=== PATIENT | male | born 1950 | race Caucasian/White ===

== ENCOUNTER → 2016-06-14 | Outpatient (CLI) | payer OTHER | END | disposition home or self-care (01) | LOC: CFH 09:01 | PROVIDERS: ATTEND Genetic Counselor, MS | DX: Z87.891 Personal history of nicotine dependence (principal) | CPT/HCPCS: 93978 ==

== ENCOUNTER 2019-03-28 05:21 | Day surgery (SDC) | payer MEDICARE ==
[2019-03-26 13:39] LABS: BASOPHILS # (AUTO) 0.05 x10^3/uL (0-0.1); BASOPHILS % (AUTO) 1 % (0-1); EOSINOPHILS # (AUTO) 0.04 x10^3/uL (0-0.4); EOSINOPHILS % (AUTO) 1 % (1-7); LYMPHOCYTES # (AUTO) 0.86 x10^3/uL (1-3.4); LYMPHOCYTES % (AUTO) 15 % (22-44); MD NO; MEAN CORPUSCULAR HEMOGLOBIN 30.7 pg (27.5-34.5); MEAN CORPUSCULAR HGB CONC 33.2 g/dL (33.2-36.2); MEAN CORPUSCULAR VOLUME 92.6 fL (81-97); MEAN PLATELET VOLUME 9.1 fL (7.4-10.4); MONOCYTES # (AUTO) 0.52 x10^3/uL (0.2-0.8); MONOCYTES % (AUTO) 9 % (2-9); NEUTROPHILS # (AUTO) 4.24 x10^3/uL (1.8-6.8); NEUTROPHILS % (AUTO) 74 % (42-75); PLATELET COUNT 243 x10^3/uL (130-400); RED BLOOD COUNT 4.22 x10^6/uL (4.38-5.82); RED CELL DISTRIBUTION WIDTH 13.8 % (9.4-14.8)
[2019-03-26 13:52] LABS: ALBUMIN 4.2 g/dL (3.4-5.0); ANION GAP 5 mmol/L (5-15); CALCIUM 9.6 mg/dL (8.5-10.1); CHLORIDE 108 mmol/L (98-107)
[2019-03-26 13:55] LABS: ALANINE AMINOTRANSFERASE 29 U/L (12-78); ALKALINE PHOSPHATASE 105 U/L (45-117); BILIRUBIN,TOTAL 0.7 mg/dL (0.2-1.0); CREATININE 1.38 mg/dL (0.7-1.3)
[2019-03-26 14:10] LABS: INTERNATIONAL NORMALIZED RATIO 0.96 (0.93-1.1); PROTHROMBIN TIME 10.2 Seconds (9.6-11.5)
[~2019-03-28] VITALS: Ht 157.5 cm; Wt 63.3 kg
[~2019-03-28 05:21] MED LIST: AMLO-150 PO; ASPI-496 PO; ATOR80TA PO; DOXA4TAB3 PO; GLYB2.5T2 PO; LOSA1TAB25 PO; METF500T17 PO; NIAC-1 PO; VIT1TABL34 PO
[2019-03-28] MEDS ORDERED: CHLORHEXIDINE 15 ML UDC MM SCH (05:30)
[2019-03-28] MEDS ORDERED: INSULIN LISPRO 100 UNITS/ML, PEN SQ-INSULIN SCH (05:30)
[2019-03-28 05:46] VITALS: BP 120/57
[2019-03-28 05:47] VITALS: BP 123/67
[2019-03-28] MEDS ORDERED: FENTANYL PF 250 MCG/5ML ONE (07:20)
[2019-03-28] MEDS ORDERED: PROPOFOL 50 ML ONE (07:24)
[2019-03-28] MEDS ORDERED: OXYcodone 5 MG/5 ML ORAL.SOL UDC PO PRN (09:00)
[2019-03-28] MEDS ORDERED: MORPHINE SULFATE 4 MG/ML, 1ML IVPush PRN (09:00)
[2019-03-28] MEDS ORDERED: DIAZEPAM 5 MG/ML, 2ML IVPush PRN (09:00)
[2019-03-28] MEDS ORDERED: SODIUM CHLORIDE FLUSH 10ML SYR IVF SCH (09:00)
[2019-03-28] MEDS ORDERED: ONDANSETRON 2MG/ML, 2ML IV PRN (09:00)
[2019-03-28] MEDS ORDERED: PROMETHAZINE 25 MG/ML, 1ML IV PRN (09:00)
[2019-03-28] MEDS ORDERED: DIPHENHYDRAMINE 50 MG/ML, 1ML IVPush PRN (09:00)
[2019-03-28] MEDS ORDERED: FENTANYL PF 100 MCG/2ML IV PRN (09:00)
[2019-03-28] MEDS ORDERED: ACETAMINOPHEN 325 MG TABLET PO PRN (09:00)
[2019-03-28] MEDS ORDERED: ONDANSETRON ODT 8 MG PO PRN (09:00)
[2019-03-28] MEDS ORDERED: HYDROcodone/APAP 5/325 TABLET PO PRN (09:00)
[2019-03-28] MEDS ORDERED: EPHEDRINE 50 MG/ML, 1ML IM PRN (09:00)
[2019-03-28 09:30] VITALS: BP 125/55
[2019-03-28] MEDS ORDERED: PROPOFOL 10 MG/ML, 20ML ONE (11:12)
[2019-03-28] MEDS ORDERED: SUCCINYLCHOLINE 20 MG/ML, 10ML ONE (11:12)
[2019-03-28] MEDS ORDERED: CEFAZOLIN 1,000 MG ONE (11:12)
[2019-03-28] MEDS ORDERED: ROCURONIUM 10MG/ML,5ML ONE (11:12)
[2019-03-28] MEDS ORDERED: ONDANSETRON 2MG/ML, 2ML ONE (11:12)
[2019-03-28 13:10] VITALS: BP 122/64
[2019-03-28] MEDS ORDERED: HYDR-3240 PO (15:18)
[2019-03-29] MEDS ORDERED: CEFUROXIME 1.5 GM in SODIUM CHLORIDE 0.9% 50 ML IVPB PRN (07:30)
[2019-03-29] MEDS ORDERED: VANCOMYCIN PMX 1GM/200ML 200 ML IV PRN (07:30)
== END 2019-03-28 15:31 | disposition home or self-care (01) ==
LOC: SDC 05:21 → UNDOADMIN 05:32 → 5SO 05:32 → EDSTATUS 07:30 → DCLOUNGE 15:21 → 5SO 15:21 → UNDODISIN 15:31 → SDC 15:31
PROVIDERS: ATTEND Thoracic Surgery (Cardiothoracic Vascular Surgery)
DX: T81.89XA Other complications of procedures, not elsewhere classified, initial encounter (principal); I25.10 Atherosclerotic heart disease of native coronary artery without angina pectoris; N17.0 Acute kidney failure with tubular necrosis; E78.5 Hyperlipidemia, unspecified; I10 Essential (primary) hypertension; E11.9 Type 2 diabetes mellitus without complications; Z87.891 Personal history of nicotine dependence; Z79.82 Long term (current) use of aspirin; Z79.84 Long term (current) use of oral hypoglycemic drugs; Z79.899 Other long term (current) drug therapy; Z95.1 Presence of aortocoronary bypass graft; Z82.49 Family history of ischemic heart disease and other diseases of the circulatory system; Y83.8 Other surgical procedures as the cause of abnormal reaction of the patient, or of later complication, without mention of misadventure at the time of the procedure
CPT/HCPCS: 20680; 36415; 71045; 71046; 80053; 82962; 83036; 85025; 85610; 85730; 86850; 86900; 86923; 93005; J0330; J0690; J1815; J2405; J2704; J3010; J0697; J3370

== ENCOUNTER → 2020-08-14 | Outpatient (CLI) | payer MEDICARE ==
[~2020-08-14] MED LIST changes: +HYDR-2214 PO; -NIAC-1 PO; +NIAC-27 PO; +REGADENOSON 0.4 MG/5 ML SYRINGE ONE
== END | disposition home or self-care (01) ==
LOC: CFH 06:50
PROVIDERS: ATTEND Internal Medicine Cardiovascular Disease
DX: I08.8 Other rheumatic multiple valve diseases (principal); I25.10 Atherosclerotic heart disease of native coronary artery without angina pectoris; E78.5 Hyperlipidemia, unspecified; I11.9 Hypertensive heart disease without heart failure; E11.9 Type 2 diabetes mellitus without complications; Z95.1 Presence of aortocoronary bypass graft
CPT/HCPCS: 78452; 93017; 93306; 93356; A9502; J2785